=== PATIENT | female | born 2000 | race Caucasian/White ===

== ENCOUNTER 2019-03-09 17:26 | Emergency (ER) | payer OTHER, BC ==
[~2019-03-09] VITALS: Ht 175.3 cm; Wt 54.4 kg
[2019-03-09 17:48] LABS: BASOPHILS ABSOLUTE AUTO 0.03 K/mm3 (0.00-0.23); BASOPHILS PERCENT AUTO 0 % (0-2); EOSINOPHILS ABSOLUTE AUTO 0.04 K/mm3 (0.00-0.68); EOSINOPHILS PERCENT AUTO 0 % (0-6); Hematocrit 43.2 % (33.0-51.0); Hemoglobin 14.6 g/dL (11.5-16.0); IMMATURE GRAN ABSOLUTE AUTO 0.04 K/mm3 (0.00-0.10); IMMATURE GRAN PERCENT AUTO 0 % (0-1); LYMPHOCYTES ABSOLUTE AUTO 4.55 K/mm3 (0.84-5.20); LYMPHOCYTES PERCENT AUTO 43 % (21-46); MONOCYTES ABSOLUTE AUTO 0.51 K/mm3 (0.16-1.47); MONOCYTES PERCENT AUTO 5 % (4-13); Mean Corpuscular HGB 31.1 pg (26.0-34.0); Mean Corpuscular HGB Conc 33.8 g/dL (31.5-36.5); Mean Corpuscular Volume 92 fL (80-100); Mean Platelet Volume 9.6 fL (9.1-12.4); NEUTROPHILS ABSOLUTE AUTO 5.37 K/mm3 (1.96-9.15); NEUTROPHILS PERCENT AUTO 51 % (41-73); Platelet Count 385 K/mm3 (150-400); RDW Coefficient Variation 11.2 % (11.7-14.2); White Blood Cell Count 10.54 K/mm3 (4.00-11.30)
[2019-03-09 18:00] LABS: International Normalized Ratio 1.07; Prothrombin Time Results 11.3 Sec (9.7-11.5)
[2019-03-09 18:42] LABS: Source, Urine Voided
[2019-03-09 18:47] LABS: Bilirubin, Urine Neg (Neg); Blood, Urine 2+ (Neg); Glucose Qualitative, Urine Neg (Neg); Ketones, Urine Neg (Neg); Leukocyte Esterase, Urine Neg (Neg); Nitrite, Urine Neg (Neg); Protein, Urine 1+ (Neg); Specific Gravity, Urine 1.005 (1.003-1.022); Urobilinogen, Urine 1+ (Normal)
[2019-03-09 18:56] LABS: Appearance, Urine Clear (Clear); Color, Urine Yellow (P-Yellow)
[2019-03-09 18:58] LABS: Squamous Epithelial Cells Few /hpf (Few); White Blood Cells, Urine 0-2 /hpf (0-5)
[2019-03-09 19:00] LABS: Bacteria Few /hpf; Mucus Light (0-Heavy)
[2019-03-09 19:12] LABS: U Amphetamine Screen Not Detected; U Barbituate Screen Not Detected; U Benzodiazapine Screen Not Detected; U Buprenorphine Screen Not Detected; U Cannabinoids Screen Not Detected; U Cocaine Screen Not Detected; U Methadone Screen Not Detected; U Methamphetamine Screen Not Detected; U Opiates Screen Not Detected; U Oxycodone Screen Not Detected; U Phencyclidine Screen Not Detected; U Propoxyphene Screen Not Detected
== END 2019-03-09 18:50 | disposition short-term general hospital (02) ==
LOC: ER 17:26
PROVIDERS: Emergency Medicine
DX: S06.9X9A Unspecified intracranial injury with loss of consciousness of unspecified duration, initial encounter (principal); S02.32XA Fracture of orbital floor, left side, initial encounter for closed fracture; S59.202A Unspecified physeal fracture of lower end of radius, left arm, initial encounter for closed fracture; S00.83XA Contusion of other part of head, initial encounter; S27.321A Contusion of lung, unilateral, initial encounter; S29.9XXA Unspecified injury of thorax, initial encounter; V49.50XA Passenger injured in collision with unspecified motor vehicles in traffic accident, initial encounter
CPT/HCPCS: 25605; 36415; 51702; 70450; 71260; 72125; 73110; 74177; 81001; 85025; 85610; 99285-25; Q9967

== ENCOUNTER 2019-03-14 21:14 | Emergency (ER) | payer OTHER, BC ==
[~2019-03-14] VITALS: Ht 177.8 cm; Wt 63.5 kg
== END 2019-03-14 22:00 | disposition home or self-care (01) ==
LOC: ER 21:14
DX: R07.9 Chest pain, unspecified (principal); M54.6 Pain in thoracic spine
CPT/HCPCS: 71046; 99283-25